=== PATIENT | female | born 2000 | race Caucasian/White ===

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

== ENCOUNTER 2019-03-22 19:34 | Observation (INO) ==
[2019-03-22 20:08] LABS: Bilirubin,Urine Negative (Negative); Blood,Urine Negative (Negative); Clarity,Urine Clear (Clear); Color,Urine Yellow (Yellow); Glucose,Urine (UA) Normal (Normal); Ketones,Urine Negative (Negative); Leukocyte Esterase,Urine Small (Negative); Nitrite,Urine Negative (Negative); Protein,Urine Negative (Neg-Trace); Specific Gravity,Urine 1.009 (1.010-1.025); Urobilinogen,Urine Normal (Normal)
[2019-03-22 20:10] LABS: Bacteria,Urine Moderate per hpf (None-Few); Hyaline Casts,Urine None Seen per lpf (None-Few); RBC,Urine 0-3 per hpf (0-3); Squamous Epithelial Cell,Urine Many per lpf (None-Few)
[2019-03-22 20:19] LABS: Basophils # 0.1 K/mcL (0.0-0.2); Basophils % 0.6 %; Eosinophils % 0.1 %; Hemoglobin 13.7 g/dL (11.5-15.4); Immature Granulocytes % 0.1 % (0-4); Lymphocytes # 1.6 K/mcL (0.6-4.6); Lymphocytes % 19.7 %; Mean Corpuscular HGB Conc 34.3 g/dL (31.6-35.5); Mean Corpuscular Hemoglobin 31.9 pg (28.0-33.3); Mean Platelet Volume 10.1 fL (9.4-12.4); Monocytes # 0.5 K/mcL (0.0-1.3); Monocytes % 6.4 %; Platelet Count 236 K/mcL (140-400); Red Cell Distribution Width 11.6 % (11.5-14.5); Segmented Neutrophils % 73.1 %; White Blood Count 8.2 K/mcL (4.3-11.1)
[2019-03-22 20:41] LABS: Alanine Aminotransferase 19 Units/L (7-52); Albumin 4.7 g/dL (3.5-5.7); Albumin/Globulin Ratio 1.7 (1.1-2.2); Alkaline Phosphatase 45 Units/L (34-104); Amylase 41 Units/L (29-103); Aspartate Amino Transferase 19 Units/L (13-39); BUN/Creatinine Ratio 13 (6-26); Bilirubin,Direct 0.2 mg/dL (0.0-0.2); Bilirubin,Indirect 0.6 mg/dL (0.0-1.2); Bilirubin,Total 0.8 mg/dL (0.3-1.0); Blood Urea Nitrogen 9 mg/dL (6-20); Calcium 9.8 mg/dL (8.6-10.3); Carbon Dioxide 24 mEq/L (23-29); Chloride 103 mEq/L (98-107); Globulin 2.8 g/dL (2.4-3.5); Glucose 89 mg/dL (70-105); Lipase 25 Units/L (11-82); Osmolality,Calculated 272 (280-300); Potassium 3.8 mEq/L (3.5-5.1); Sodium 132 mEq/L (136-145); Total Protein 7.5 g/dL (6.4-8.9); eGFR For African Americans > 60; eGFR For Non-African Americans > 60
[2019-03-22] MEDS ORDERED: Isovue-370 500 ML BOTTLE IVP ONE (22:44)
[2019-03-22] MEDS ORDERED: 0.9 % Sodium Chloride 1,000 ML IVC STA (22:45)
--- NOTE | 2019-03-22 22:48 | Emergency Department Note ---
Disposition Clinical Impression: RLQ abdominal pain Disposition: Still a Patient Condition: Good Referrals: Tracie Fritz CNP [Primary Care Provider] - Forms: ED Satisfaction Letter, Work/School Release Time of Disposition: 22:58 General Adult HPI - General Chief complaint: ED Abdominal Pain Stated complaint: RLQ Pain Time Seen by Provider: 03/22/19 20:43 Source: patient Limitations: no limitations Nursing Notes Reviewed: Yes Vital Signs Reviewed: Yes - History of Present Illness HPI Narrative: 18-year-old female who presents the emergency department with complaints of right lower quadrant abdominal pain. She states this started earlier today. Alejo keys has not felt hungry all day which she did tolerate a sandwich earlier this morning. She notes nausea but denies any vomiting. She denies any urinary symptoms including dysuria, hematuria. She denies any vaginal bleeding or discharge. Last measured. He was possibly one month ago. She denies any history of abdominal surgeries or ovarian cysts. She has never had pain similar to this. She took Tylenol and Zofran and the symptoms with her symptoms. She denies any chest pain, shortness of breath, fever, chills. Pain Scale: 5 - Related Data Previous Rx's Medication Instructions Recorded Albuterol Sulfate [Albuterol 1 puff IH Q4HR #1 hfa.aer.ad 12/17/17 Inhaler] Famotidine [Pepcid] 20 mg PO BID 7 Days #14 tablet 12/17/17 predniSONE [Prednisone] 50 mg PO DAILY #3 tablet 12/18/17 Allergies Allergy/AdvReac Type Severity Reaction Status Date / Time No Known Allergies Allergy Verified 12/16/17 19:32 Review of Systems: ROS per history of present illness, all other systems reviewed and negative or normal. All systems ED: reviewed and negative except as stated. Review of Systems: As Per HPI Past Medical History - Past Medical History Medical history: Reports: no medical history Psychiatric history: Reports: no psych history - Social History Smoking Status: Never smoker Smokeless Tobacco Status: No Alcohol use: Reports: none Drug use: Reports: none Physical Exam General: Conversant. No apparent distress. Follow commands. Appears stated age. Neck: No JVD. Trachea midline. Neck supple. Eyes: PERRL. No scleral icterus. HENT: Normocephalic and atraumatic. Moist mucus membranes. Cardiovascular: Regular rate and rhythm. Normal S1 and S2. No murmurs appreciated. Normal capillary refill. Extremities well perfused with 2+ distal pulses bilaterally. No edema. Pulmonary: Normal and equal breath sounds bilaterally, anteriorly and posteriorly. No wheezes, rales, or rhonchi. Not in respiratory distress. Speaks in full sentences. Abdomen: Soft, nondistended. The patient has tenderness in the right lower quadrant at McBurney's point. There is no rigidity or guarding. Positive rovsing sign. Negative psoas. Neuro: Alert and oriented x3. No slurred speech. No focal deficits noted. Skin: No rashes noted on visualized skin. Musculoskeletal: No bony abnormalities visualized. Moves all extremities. Psych: Normal mood. Pleasant. Makes appropriate eye contact. - General Limitations: no limitations General appearance: alert, in no apparent distress Course Vital Signs Temperature 98.4 F 03/22/19 19:52 Pulse Rate 104 03/22/19 19:52 Respiratory Rate 20 03/22/19 19:52 Blood Pressure 126/88 03/22/19 19:52 O2 Sat by Pulse Oximetry 99 03/22/19 19:52 Temperature 98.4 F 03/22/19 19:52 Pulse Rate 104 03/22/19 19:52 Respiratory Rate 20 03/22/19 19:52 Blood Pressure 126/88 03/22/19 19:52 O2 Sat by Pulse Oximetry 99 03/22/19 19:52 Oxygen Delivery Oxygen Delivery Room Air Medical Decision Making - [facility] Narrative Medical decision making narrative: 18-year-old female who presents the emergency department with complaints of right lower quadrant abdominal pain. Patient has stable vital signs upon arrival. Laboratory evaluation obtained in triage including CBC, BMP, urinalysis, urine test shows evidence of possible urinary tract infection. Patient's pain is predominantly in the right lower quadrant over McBurney's point with positive Rovsing but no rigidity or rebound tenderness. The patient is otherwise well appearing, vomiting, not tachycardic. The patient has no significant leukocytosis or anemia. Electrolytes are stable with the exception of slight hyponatremia. LFTs normal. Lipase not significantly elevated. She is not . We will obtain CT abdomen/pelvis to evaluate for possible appendicitis and mother is agreeable to this plan. Should this show significant ovarian cyst may require ovarian ultrasound but her symptoms are not consistent with ovarian torsion. Please see final disposition in Dr. Dale's note. Patient is still patient. - Medical Records Medical records reviewed: Yes I reviewed the patient's medical records. - Lab Data Lab results reviewed: Yes I reviewed the patient's lab results. Result diagrams: 03/22/19 20:06 03/22/19 20:06 Lab Results 03/22/19 03/22/19 03/22/19 Range/Units 19:40 19:40 20:06 WBC 8.2 (4.3-11.1) K/mcL RBC 4.30 (3.82-4.97) M/mcL Hgb 13.7 (11.5-15.4) g/dL Hct 40.0 (35.3-44.9) % MCV 93.0 (83.0-100.0) fL MCH 31.9 (28.0-33.3) pg MCHC 34.3 (31.6-35.5) g/dL RDW 11.6 (11.5-14.5) % Plt Count 236 (140-400) K/mcL MPV 10.1 (9.4-12.4) fL Immature Gran % 0.1 (0-4) % Seg Neutrophils % 73.1 % Lymphocytes % 19.7 % Monocytes % 6.4 % Eosinophils % 0.1 % Basophils % 0.6 % Neutrophils # 6.0 (1.6-8.9) K/mcL Lymphocytes # 1.6 (0.6-4.6) K/mcL Monocytes # 0.5 (0.0-1.3) K/mcL Eosinophils # 0.0 (0.0-0.6) K/mcL Basophils # 0.1 (0.0-0.2) K/mcL Sodium (136-145) mEq/L Potassium (3.5-5.1) mEq/L Chloride (98-107) mEq/L Carbon Dioxide (23-29) mEq/L BUN (6-20) mg/dL Creatinine (0.60-1.20) mg/dL Est GFR ( Amer) Est GFR (Non-Af Amer) BUN/Creatinine Ratio (6-26) Glucose (70-105) mg/dL Calculated Osmolality (280-300) Calcium (8.6-10.3) mg/dL Total Bilirubin (0.3-1.0) mg/dL Direct Bilirubin (0.0-0.2) mg/dL Indirect Bilirubin (0.0-1.2) mg/dL AST (13-39) Units/L ALT (7-52) Units/L Alkaline Phosphatase (34-104) Units/L Serum Total Protein (6.4-8.9) g/dL Albumin (3.5-5.7) g/dL Globulin (2.4-3.5) g/dL Albumin/Globulin Ratio (1.1-2.2) Amylase (29-103) Units/L Lipase (11-82) Units/L Urine Color Yellow (Yellow) Urine Clarity Clear (Clear) Urine pH 7.0 (5.0-8.0) pH Units Ur Specific [place] 1.009 L (1.010-1.025) Urine Protein Negative (Neg-Trace) mg/dL Urine Glucose (UA) Normal (Normal) mg/dL Urine Ketones Negative (Negative) mg/dL Urine Blood Negative (Negative) Urine Nitrite Negative (Negative) Urine Bilirubin Negative (Negative) Urine Urobilinogen Normal (Normal) mg/dL Ur Leukocyte Esterase Small H (Negative) Urine Microscopic RBC 0-3 (0-3) per hpf Urine Microscopic WBC 5-15 H (0-3) per hpf Ur Squamous Epith Cells Many H (None-Few) per lpf Urine Bacteria Moderate H (None-Few) per hpf Hyaline Casts None Seen (None-Few) per lpf Ur Culture Indicated? YES A (NO) Urine Test Negative (Negative) 03/22/19 Range/Units 20:06 WBC (4.3-11.1) K/mcL RBC (3.82-4.97) M/mcL Hgb (11.5-15.4) g/dL Hct (35.3-44.9) % MCV (83.0-100.0) fL MCH (28.0-33.3) pg MCHC (31.6-35.5) g/dL RDW (11.5-14.5) % Plt Count (140-400) K/mcL MPV (9.4-12.4) fL Immature Gran % (0-4) % Seg Neutrophils % % Lymphocytes % % Monocytes % % Eosinophils % % Basophils % % Neutrophils # (1.6-8.9) K/mcL Lymphocytes # (0.6-4.6) K/mcL Monocytes # (0.0-1.3) K/mcL Eosinophils # (0.0-0.6) K/mcL Basophils # (0.0-0.2) K/mcL Sodium 132 L (136-145) mEq/L Potassium 3.8 (3.5-5.1) mEq/L Chloride 103 (98-107) mEq/L Carbon Dioxide 24 (23-29) mEq/L BUN 9 (6-20) mg/dL Creatinine 0.67 (0.60-1.20) mg/dL Est GFR ( Amer) > 60 Est GFR (Non-Af Amer) > 60 BUN/Creatinine Ratio 13 (6-26) Glucose 89 (70-105) mg/dL Calculated Osmolality 272 L (280-300) Calcium 9.8 (8.6-10.3) mg/dL Total Bilirubin 0.8 (0.3-1.0) mg/dL Direct Bilirubin 0.2 (0.0-0.2) mg/dL Indirect Bilirubin 0.6 (0.0-1.2) mg/dL AST 19 (13-39) Units/L ALT 19 (7-52) Units/L Alkaline Phosphatase 45 (34-104) Units/L Serum Total Protein 7.5 (6.4-8.9) g/dL Albumin 4.7 (3.5-5.7) g/dL Globulin 2.8 (2.4-3.5) g/dL Albumin/Globulin Ratio 1.7 (1.1-2.2) Amylase 41 (29-103) Units/L Lipase 25 (11-82) Units/L Urine Color (Yellow) Urine Clarity (Clear) Urine pH (5.0-8.0) pH Units Ur Specific [place] (1.010-1.025) Urine Protein (Neg-Trace) mg/dL Urine Glucose (UA) (Normal) mg/dL Urine Ketones (Negative) mg/dL Urine Blood (Negative) Urine Nitrite (Negative) Urine Bilirubin (Negative) Urine Urobilinogen (Normal) mg/dL Ur Leukocyte Esterase (Negative) Urine Microscopic RBC (0-3) per hpf Urine Microscopic WBC (0-3) per hpf Ur Squamous Epith Cells (None-Few) per lpf Urine Bacteria (None-Few) per hpf Hyaline Casts (None-Few) per lpf Ur Culture Indicated? (NO) Urine Test (Negative) Attestation Statement - Attestation Attestation: I, Nguyễn Dale DO, examined this patient [id number] and my medical decision-making was reviewed with Dr. Marissa Ramirez, Resident Physician. I agree with the documented findings, disposition and treatment plan as described except to the extent set forth below. I personally supervised and was present for the bunn/critical portions of the procedures completed by the resident documented below. Please see my progress notes for details.
--- NOTE | 2019-03-22 23:18 | Emergency Department Note ---
Disposition Clinical Impression: RLQ abdominal pain Disposition: Still a Patient Condition: Good Referrals: Tracie Fritz FURRIER DESIGNER [Primary Care Provider] - Forms: ED Satisfaction Letter, Work/School Release Time of Disposition: 01:07 General Adult HPI - General Chief complaint: ED Abdominal Pain Stated complaint: RLQ Pain Time Seen by Provider: 03/22/19 20:43 Source: patient Limitations: no limitations - History of Present Illness Pain Scale: 5 - Related Data Previous Rx's Medication Instructions Recorded Albuterol Sulfate [Albuterol 1 puff IH Q4HR #1 hfa.aer.ad 12/17/17 Inhaler] Famotidine [Pepcid] 20 mg PO BID 7 Days #14 tablet 12/17/17 predniSONE [Prednisone] 50 mg PO DAILY #3 tablet 12/18/17 Allergies Allergy/AdvReac Type Severity Reaction Status Date / Time No Known Allergies Allergy Verified 12/16/17 19:32 Past Medical History - Past Medical History Medical history: Reports: no medical history Psychiatric history: Reports: no psych history - Social History Smoking Status: Never smoker Smokeless Tobacco Status: No Alcohol use: Reports: none Drug use: Reports: none Physical Exam - General Limitations: no limitations General appearance: alert, in no apparent distress Course Vital Signs Temperature 98.4 F 03/22/19 19:52 Pulse Rate 104 03/22/19 19:52 Respiratory Rate 20 03/22/19 19:52 Blood Pressure 126/88 03/22/19 19:52 O2 Sat by Pulse Oximetry 99 03/22/19 19:52 Temperature 98.4 F 03/22/19 19:52 Pulse Rate 104 03/22/19 19:52 Respiratory Rate 20 03/22/19 19:52 Blood Pressure 126/88 03/22/19 19:52 O2 Sat by Pulse Oximetry 99 03/22/19 19:52 Oxygen Delivery Oxygen Delivery Room Air Medical Decision Making - Lab Data Result diagrams: 03/22/19 20:06 03/22/19 20:06 Lab Results 03/22/19 03/22/19 03/22/19 Range/Units 19:40 19:40 20:06 WBC 8.2 (4.3-11.1) K/mcL RBC 4.30 (3.82-4.97) M/mcL Hgb 13.7 (11.5-15.4) g/dL Hct 40.0 (35.3-44.9) % MCV 93.0 (83.0-100.0) fL MCH 31.9 (28.0-33.3) pg MCHC 34.3 (31.6-35.5) g/dL RDW 11.6 (11.5-14.5) % Plt Count 236 (140-400) K/mcL MPV 10.1 (9.4-12.4) fL Immature Gran % 0.1 (0-4) % Seg Neutrophils % 73.1 % Lymphocytes % 19.7 % Monocytes % 6.4 % Eosinophils % 0.1 % Basophils % 0.6 % Neutrophils # 6.0 (1.6-8.9) K/mcL Lymphocytes # 1.6 (0.6-4.6) K/mcL Monocytes # 0.5 (0.0-1.3) K/mcL Eosinophils # 0.0 (0.0-0.6) K/mcL Basophils # 0.1 (0.0-0.2) K/mcL Sodium (136-145) mEq/L Potassium (3.5-5.1) mEq/L Chloride (98-107) mEq/L Carbon Dioxide (23-29) mEq/L BUN (6-20) mg/dL Creatinine (0.60-1.20) mg/dL Est GFR ( Amer) Est GFR (Non-Af Amer) BUN/Creatinine Ratio (6-26) Glucose (70-105) mg/dL Calculated Osmolality (280-300) Calcium (8.6-10.3) mg/dL Total Bilirubin (0.3-1.0) mg/dL Direct Bilirubin (0.0-0.2) mg/dL Indirect Bilirubin (0.0-1.2) mg/dL AST (13-39) Units/L ALT (7-52) Units/L Alkaline Phosphatase (34-104) Units/L Serum Total Protein (6.4-8.9) g/dL Albumin (3.5-5.7) g/dL Globulin (2.4-3.5) g/dL Albumin/Globulin Ratio (1.1-2.2) Amylase (29-103) Units/L Lipase (11-82) Units/L Urine Color Yellow (Yellow) Urine Clarity Clear (Clear) Urine pH 7.0 (5.0-8.0) pH Units Ur Specific [place] 1.009 L (1.010-1.025) Urine Protein Negative (Neg-Trace) mg/dL Urine Glucose (UA) Normal (Normal) mg/dL Urine Ketones Negative (Negative) mg/dL Urine Blood Negative (Negative) Urine Nitrite Negative (Negative) Urine Bilirubin Negative (Negative) Urine Urobilinogen Normal (Normal) mg/dL Ur Leukocyte Esterase Small H (Negative) Urine Microscopic RBC 0-3 (0-3) per hpf Urine Microscopic WBC 5-15 H (0-3) per hpf Ur Squamous Epith Cells Many H (None-Few) per lpf Urine Bacteria Moderate H (None-Few) per hpf Hyaline Casts None Seen (None-Few) per lpf Ur Culture Indicated? YES A (NO) Urine Test Negative (Negative) 03/22/19 Range/Units 20:06 WBC (4.3-11.1) K/mcL RBC (3.82-4.97) M/mcL Hgb (11.5-15.4) g/dL Hct (35.3-44.9) % MCV (83.0-100.0) fL MCH (28.0-33.3) pg MCHC (31.6-35.5) g/dL RDW (11.5-14.5) % Plt Count (140-400) K/mcL MPV (9.4-12.4) fL Immature Gran % (0-4) % Seg Neutrophils % % Lymphocytes % % Monocytes % % Eosinophils % % Basophils % % Neutrophils # (1.6-8.9) K/mcL Lymphocytes # (0.6-4.6) K/mcL Monocytes # (0.0-1.3) K/mcL Eosinophils # (0.0-0.6) K/mcL Basophils # (0.0-0.2) K/mcL Sodium 132 L (136-145) mEq/L Potassium 3.8 (3.5-5.1) mEq/L Chloride 103 (98-107) mEq/L Carbon Dioxide 24 (23-29) mEq/L BUN 9 (6-20) mg/dL Creatinine 0.67 (0.60-1.20) mg/dL Est GFR ( Amer) > 60 Est GFR (Non-Af Amer) > 60 BUN/Creatinine Ratio 13 (6-26) Glucose 89 (70-105) mg/dL Calculated Osmolality 272 L (280-300) Calcium 9.8 (8.6-10.3) mg/dL Total Bilirubin 0.8 (0.3-1.0) mg/dL Direct Bilirubin 0.2 (0.0-0.2) mg/dL Indirect Bilirubin 0.6 (0.0-1.2) mg/dL AST 19 (13-39) Units/L ALT 19 (7-52) Units/L Alkaline Phosphatase 45 (34-104) Units/L Serum Total Protein 7.5 (6.4-8.9) g/dL Albumin 4.7 (3.5-5.7) g/dL Globulin 2.8 (2.4-3.5) g/dL Albumin/Globulin Ratio 1.7 (1.1-2.2) Amylase 41 (29-103) Units/L Lipase 25 (11-82) Units/L Urine Color (Yellow) Urine Clarity (Clear) Urine pH (5.0-8.0) pH Units Ur Specific [place] (1.010-1.025) Urine Protein (Neg-Trace) mg/dL Urine Glucose (UA) (Normal) mg/dL Urine Ketones (Negative) mg/dL Urine Blood (Negative) Urine Nitrite (Negative) Urine Bilirubin (Negative) Urine Urobilinogen (Normal) mg/dL Ur Leukocyte Esterase (Negative) Urine Microscopic RBC (0-3) per hpf Urine Microscopic WBC (0-3) per hpf Ur Squamous Epith Cells (None-Few) per lpf Urine Bacteria (None-Few) per hpf Hyaline Casts (None-Few) per lpf Ur Culture Indicated? (NO) Urine Test (Negative) Attestation Statement - Attestation Attestation: I, Nguyễn Dale DO, examined this patient [id number] and my medical decision-making was reviewed with Dr. Marissa Ramirez, Resident Physician. I agree with the documented findings, disposition and treatment plan as described except to the extent set forth below. I personally supervised and was present for the bunn/critical portions of the procedures completed by the resident documented below. Please see my progress notes for details. 18-year-old female presents emergency room with progressively worsening right lower quadrant abdominal pain over the last 12 hours. Patient has had intermitt ent fevers and chills at home but never documented. She denies any headache or vision change. She has not had any other symptoms or complaints prior to this. Patient is not sexually active. She denies any vaginal discharge or bleeding. Currently denying chest pain shortness of breath. She is otherwise stable. She is up-to-date on her shots and has not traveled outside the country. 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 Vital signs are reviewed and are stable. Patient is resting comfortably in the bed. Head is atraumatic. Mucous membranes are moist. Oropharynx is patent. Trachea is midline. Abdomen is soft but he does have isolated right lower quadrant abdominal pain with no guarding rigidity or peritoneal symptoms at this time. No one in the patient's family has ovarian cyst. She is supposed to start her menstrual cycle here in the next day or so. She has never had pain like this ever in the past. Patient is in the right lower quadrant does not appear to be in the adnexa. Urinalysis and urine test were collected prior to my evaluation her test is negative. Ectopic appears to be officially ruled out at this time. Patient is concerning for appendicitis based on the physical exam. No immediate need for ultrasound of the abdomen considering there is no specific history of ovarian cyst. On the imaging modality of the abdomen will determine whether or not further ultrasound or pelvic examination is completed. Patient is adamant that she is not sexually active at this time. Symptomatic control fluids and pain medication will be given as needed. Disposition pending. See detailed documentation the physical exam, medical intervention, medical decision-making and disposition in the resident physician's note. No critical care provider the patient's treatment course at this time. [id number] Patient is clinically stable. CT imaging the abdomen does not show any acute signs of appendicitis. There is physiologic free fluid and possible ovarian cyst. Ultrasound is pending at this time. The patient does disclose now this point that she has been sexually active in the past but does not have any concern for sexual transmitted diseases vaginal discharge or other issues. Effectively, ectopic and tubo-ovarian abscess have been ruled out at this point. Ovarian cyst and patient will be evaluated transabdominal versus trans-vaginal ultrasound. Discussion was had with the patient about pelvic examination as well as swabs that she does not want that completed at this point. Patient will be monitored until the imaging modality is completed and disposition determined. [id number] Patient is still pending the completion of the ultrasound. Patient was signed out to the overnight physician Dr. Jeong for the completion of care. Patient is still denying any concern for infectious disease related issues and does not want pelvic exam. Stable at the time of signout.
--- NOTE | 2019-03-23 01:05 | Emergency Department Note ---
Disposition Clinical Impression: RLQ abdominal pain Disposition: Admitted As Inpatient Condition: Good Referrals: Tracie Fritz MECHANICAL LABORATORY TECHNICIAN [Primary Care Provider] - Forms: ED Satisfaction Letter, Work/School Release Time of Disposition: 01:37 General Adult HPI - General Chief complaint: ED Abdominal Pain Stated complaint: RLQ Pain Time Seen by Provider: 03/22/19 20:43 Source: patient Limitations: no limitations - History of Present Illness Pain Scale: 5 - Related Data Previous Rx's Medication Instructions Recorded Albuterol Sulfate [Albuterol 1 puff IH Q4HR #1 [id number].[email or web address].[email or web address] 12/17/17 Inhaler] Famotidine [Pepcid] 20 mg PO BID 7 Days #14 tablet 12/17/17 predniSONE [Prednisone] 50 mg PO DAILY #3 tablet 12/18/17 Allergies Allergy/AdvReac Type Severity Reaction Status Date / Time No Known Allergies Allergy Verified 12/16/17 19:32 Past Medical History - Past Medical History Medical history: Reports: no medical history Psychiatric history: Reports: no psych history - Social History Smoking Status: Never smoker Smokeless Tobacco Status: No Alcohol use: Reports: none Drug use: Reports: none Physical Exam - General Limitations: no limitations General appearance: alert, in no apparent distress Course Vital Signs Temperature 98.4 F 03/22/19 19:52 Pulse Rate 104 03/22/19 19:52 Respiratory Rate 20 03/22/19 19:52 Blood Pressure 126/88 03/22/19 19:52 O2 Sat by Pulse Oximetry 99 03/22/19 19:52 Temperature 98.4 F 03/22/19 19:52 Pulse Rate 104 03/22/19 19:52 Respiratory Rate 20 03/22/19 19:52 Blood Pressure 126/88 03/22/19 19:52 O2 Sat by Pulse Oximetry 99 03/22/19 19:52 Oxygen Delivery Oxygen Delivery Room Air Medical Decision Making - Lab Data Result diagrams: 03/22/19 20:06 03/22/19 20:06 Lab Results 03/22/19 03/22/19 03/22/19 Range/Units 19:40 19:40 20:06 WBC 8.2 (4.3-11.1) K/mcL RBC 4.30 (3.82-4.97) M/mcL Hgb 13.7 (11.5-15.4) g/dL Hct 40.0 (35.3-44.9) % MCV 93.0 (83.0-100.0) fL MCH 31.9 (28.0-33.3) pg MCHC 34.3 (31.6-35.5) g/dL RDW 11.6 (11.5-14.5) % Plt Count 236 (140-400) K/mcL MPV 10.1 (9.4-12.4) fL Immature Gran % 0.1 (0-4) % Seg Neutrophils % 73.1 % Lymphocytes % 19.7 % Monocytes % 6.4 % Eosinophils % 0.1 % Basophils % 0.6 % Neutrophils # 6.0 (1.6-8.9) K/mcL Lymphocytes # 1.6 (0.6-4.6) K/mcL Monocytes # 0.5 (0.0-1.3) K/mcL Eosinophils # 0.0 (0.0-0.6) K/mcL Basophils # 0.1 (0.0-0.2) K/mcL Sodium (136-145) mEq/L Potassium (3.5-5.1) mEq/L Chloride (98-107) mEq/L Carbon Dioxide (23-29) mEq/L BUN (6-20) mg/dL Creatinine (0.60-1.20) mg/dL Est GFR ( Amer) Est GFR (Non-Af Amer) BUN/Creatinine Ratio (6-26) Glucose (70-105) mg/dL Calculated Osmolality (280-300) Calcium (8.6-10.3) mg/dL Total Bilirubin (0.3-1.0) mg/dL Direct Bilirubin (0.0-0.2) mg/dL Indirect Bilirubin (0.0-1.2) mg/dL AST (13-39) Units/L ALT (7-52) Units/L Alkaline Phosphatase (34-104) Units/L Serum Total Protein (6.4-8.9) g/dL Albumin (3.5-5.7) g/dL Globulin (2.4-3.5) g/dL Albumin/Globulin Ratio (1.1-2.2) Amylase (29-103) Units/L Lipase (11-82) Units/L Urine Color Yellow (Yellow) Urine Clarity Clear (Clear) Urine pH 7.0 (5.0-8.0) pH Units Ur Specific [place] 1.009 L (1.010-1.025) Urine Protein Negative (Neg-Trace) mg/dL Urine Glucose (UA) Normal (Normal) mg/dL Urine Ketones Negative (Negative) mg/dL Urine Blood Negative (Negative) Urine Nitrite Negative (Negative) Urine Bilirubin Negative (Negative) Urine Urobilinogen Normal (Normal) mg/dL Ur Leukocyte Esterase Small H (Negative) Urine Microscopic RBC 0-3 (0-3) per hpf Urine Microscopic WBC 5-15 H (0-3) per hpf Ur Squamous Epith Cells Many H (None-Few) per lpf Urine Bacteria Moderate H (None-Few) per hpf Hyaline Casts None Seen (None-Few) per lpf Ur Culture Indicated? YES A (NO) Urine Test Negative (Negative) 03/22/19 Range/Units 20:06 WBC (4.3-11.1) K/mcL RBC (3.82-4.97) M/mcL Hgb (11.5-15.4) g/dL Hct (35.3-44.9) % MCV (83.0-100.0) fL MCH (28.0-33.3) pg MCHC (31.6-35.5) g/dL RDW (11.5-14.5) % Plt Count (140-400) K/mcL MPV (9.4-12.4) fL Immature Gran % (0-4) % Seg Neutrophils % % Lymphocytes % % Monocytes % % Eosinophils % % Basophils % % Neutrophils # (1.6-8.9) K/mcL Lymphocytes # (0.6-4.6) K/mcL Monocytes # (0.0-1.3) K/mcL Eosinophils # (0.0-0.6) K/mcL Basophils # (0.0-0.2) K/mcL Sodium 132 L (136-145) mEq/L Potassium 3.8 (3.5-5.1) mEq/L Chloride 103 (98-107) mEq/L Carbon Dioxide 24 (23-29) mEq/L BUN 9 (6-20) mg/dL Creatinine 0.67 (0.60-1.20) mg/dL Est GFR ( Amer) > 60 Est GFR (Non-Af Amer) > 60 BUN/Creatinine Ratio 13 (6-26) Glucose 89 (70-105) mg/dL Calculated Osmolality 272 L (280-300) Calcium 9.8 (8.6-10.3) mg/dL Total Bilirubin 0.8 (0.3-1.0) mg/dL Direct Bilirubin 0.2 (0.0-0.2) mg/dL Indirect Bilirubin 0.6 (0.0-1.2) mg/dL AST 19 (13-39) Units/L ALT 19 (7-52) Units/L Alkaline Phosphatase 45 (34-104) Units/L Serum Total Protein 7.5 (6.4-8.9) g/dL Albumin 4.7 (3.5-5.7) g/dL Globulin 2.8 (2.4-3.5) g/dL Albumin/Globulin Ratio 1.7 (1.1-2.2) Amylase 41 (29-103) Units/L Lipase 25 (11-82) Units/L Urine Color (Yellow) Urine Clarity (Clear) Urine pH (5.0-8.0) pH Units Ur Specific [place] (1.010-1.025) Urine Protein (Neg-Trace) mg/dL Urine Glucose (UA) (Normal) mg/dL Urine Ketones (Negative) mg/dL Urine Blood (Negative) Urine Nitrite (Negative) Urine Bilirubin (Negative) Urine Urobilinogen (Normal) mg/dL Ur Leukocyte Esterase (Negative) Urine Microscopic RBC (0-3) per hpf Urine Microscopic WBC (0-3) per hpf Ur Squamous Epith Cells (None-Few) per lpf Urine Bacteria (None-Few) per hpf Hyaline Casts (None-Few) per lpf Ur Culture Indicated? (NO) Urine Test (Negative) Attestation Statement - Attestation Attestation: Care assumed from Dr. Dale 01:00 pending pelvic ultrasound. Patient presented with lower abdominal pain. Transcribed report of the CT scan reviewed by me. Labs reviewed by me. Ultrasound pending 01:32: I examined the patient. She has tenderness with palpation of her right lower quadrant. I discussed the findings of his CT scan and ultrasound with the patient and her mother. Given her ongoing pain call was placed to the acute care surgicalist 01:36: Dr. Maki accepts admission
[2019-03-23] MEDS ORDERED: cefOXitin 1,000 MG in 0.9 % Sodium Chloride Mini Bag 100 ML IVPB ONE (01:36)
[2019-03-23] MEDS: 0.9 % Sodium Chloride 1,000 ML IVC SCH ×3 (02:36→20:20)
[2019-03-23] MEDS: Ketorolac 15 MG/ML VIAL IVP PRN ×3 (04:03→20:23)
[2019-03-23 04:59] LABS: Basophils % 0.4 %; Eosinophils % 0.4 %; Hematocrit 35.3 % (35.3-44.9); Immature Granulocytes % 0.2 % (0-4); Lymphocytes # 1.7 K/mcL (0.6-4.6); Lymphocytes % 36.9 %; Mean Corpuscular HGB Conc 33.7 g/dL (31.6-35.5); Mean Corpuscular Hemoglobin 31.5 pg (28.0-33.3); Mean Corpuscular Volume 93.4 fL (83.0-100.0); Mean Platelet Volume 10.9 fL (9.4-12.4); Monocytes # 0.5 K/mcL (0.0-1.3); Monocytes % 10.3 %; Neutrophils # 2.3 K/mcL (1.6-8.9); Platelet Count 194 K/mcL (140-400); Red Blood Count 3.78 M/mcL (3.82-4.97); Red Cell Distribution Width 11.5 % (11.5-14.5); Segmented Neutrophils % 51.8 %; White Blood Count 4.5 K/mcL (4.3-11.1)
[2019-03-23 05:00] LABS: Hemoglobin 11.9 g/dL (11.5-15.4)
[2019-03-23] MEDS ORDERED: Pantoprazole 40 MG VIAL IVP SCH (09:00)
[2019-03-23] MEDS: cefOXitin 2,000 MG in Water for inj. (sterile) 20 ML IVP SCH ×2 (09:17→17:24)
--- NOTE | 2019-03-23 10:57 | Acute Care Surgery H&P ---
<Tabitha Montano - Last Filed: 03/23/19 10:53> Date of Encounter: 03/23/19 Time of Encounter: 07:30 Assessment and Plan (1) RLQ abdominal pain Current Visit: Yes Status: Acute The assessment and plan as outlined above was discussed with the patient and/or family members who expressed understanding and agreement. All questions were answered. Acute appendicitis vs Ovarian Cyst. Pt offered surgical intervention this am, but opted to wait for re-evaluation per surgeon at noon. Continue IVF, IV aTBX, and NPO in the interim. She is recommended to not use pain medications this am so as not to mask any further symptoms. Upon Re-assessment per the ARPN at 1055, pt reports if she is lying still her pain is improved, but ay movement or palpation increased RLQ pain. Previously her discomfort was noted to be much more inferior and lateral; however at this time, she points to McBurney's and has a positive McBurney's sign. Will review with attending surgeon. Anticipate surgical intervention this afternoon History of Present Illness Chief complaint: RLQ pain HPI: Ms. Cassidy is a 18 year old female who presented on 03/22/2019 with complaints of right lower quadrant pain that started earlier that a.m. She reports that she had nausea but no vomiting immediately preceding the right lower quadrant pain. She denies an appetite. She denies fever or chills. She denies any urinary signs or symptoms, vaginal discharge or bleeding, last menstrual period was approximately one month ago. Her clinical course thus far has included laboratory studies which revealed in unremarkable white blood cell count, her UA was positive for a small amount of leukocytes, moderate bacteria, culture as indicated in pending. CT of her abdomen and pelvis with IV and no oral contrast noted no abdominal pelvic process. The appendix was overall normal with some questionable thickening at the terminal ileum. Pelvic ultrasound was performed which noted endometrial thickening most likely consistent with menstrual cycle, no evidence of torsion there was free pelvic fluid in the cul-de-sac. Surgery will admit for further work-up and management. Past Med Surg Social Fam HX - Past Medical History Source: patient Medical history: no medical history Psychiatric history: no psych history - Past Surgical History Surgical History: no surgical history - Social History Smoking Status: Never smoker Smokeless Tobacco Status: No Alcohol use: none Drug use: none - Family History Grandmother Living Status: Still Living Hx Family Respiratory Disorders: Yes (COPD) Medications and Allergies No Known Home Drugs 03/23/19 [History] Allergy/AdvReac Type Severity Reaction Status Date / Time No Known Allergies Allergy Verified 12/16/17 19:32 Review of Systems All systems PM: reviewed and no additional remarkable complaints except as stated All systems PM: The remainder of the systems were reviewed and are negative General Surgery Exam Initial Vital Signs Temp Pulse Resp BP Pulse Ox 98.4 F 104 20 126/88 99 03/22/19 19:52 03/22/19 19:52 03/22/19 19:52 03/22/19 19:52 03/22/19 19:52 - General physical appearance well nourished, no distress, other (sleeping upon entry to room at 0730 and 1055) - Neck trachea midline - Respiratory normal expansion, normal respiratory effort - Abdomen Abdomen general surgery: Present: bowel sounds present, soft, tender (RLQ, more suprapubic and inguinal than McBurney's, neg Rovsign) - Integumentary Integumentary general surgery: Present: warm and dry - Neurologic Present: normal sensation - Musculoskeletal Present: normal gait - Psychiatric Psychiatric general surgery: Present: A&Ox3 Results - Labs 03/23/19 03:53 03/22/19 20:06 Abnormal lab results RBC 3.78 M/mcL (3.82-4.97) L 03/23/19 03:53 Sodium 132 mEq/L (136-145) L 03/22/19 20:06 Calculated Osmolality 272 (280-300) L 03/22/19 20:06 Ur Specific [place] 1.009 (1.010-1.025) L 03/22/19 19:40 Ur Leukocyte Esterase Small (Negative) H 03/22/19 19:40 Urine Microscopic WBC 5-15 per hpf (0-3) H 03/22/19 19:40 Ur Squamous Epith Cells Many per lpf (None-Few) H 03/22/19 19:40 Urine Bacteria Moderate per hpf (None-Few) H 03/22/19 19:40 Ur Culture Indicated? YES (NO) A 03/22/19 19:40 Diabetes panel 03/22/19 Range/Units 20:06 Sodium 132 L (136-145) mEq/L Potassium 3.8 (3.5-5.1) mEq/L Chloride 103 (98-107) mEq/L Carbon Dioxide 24 (23-29) mEq/L BUN 9 (6-20) mg/dL Creatinine 0.67 (0.60-1.20) mg/dL Glucose 89 (70-105) mg/dL Calcium 9.8 (8.6-10.3) mg/dL AST 19 (13-39) Units/L ALT 19 (7-52) Units/L Alkaline Phosphatase 45 (34-104) Units/L Albumin 4.7 (3.5-5.7) g/dL Calcium panel 03/22/19 Range/Units 20:06 Calcium 9.8 (8.6-10.3) mg/dL Albumin 4.7 (3.5-5.7) g/dL Pituitary panel 03/22/19 Range/Units 20:06 Sodium 132 L (136-145) mEq/L Potassium 3.8 (3.5-5.1) mEq/L Chloride 103 (98-107) mEq/L Carbon Dioxide 24 (23-29) mEq/L BUN 9 (6-20) mg/dL Creatinine 0.67 (0.60-1.20) mg/dL Glucose 89 (70-105) mg/dL Calcium 9.8 (8.6-10.3) mg/dL Adrenal panel 03/22/19 Range/Units 20:06 Sodium 132 L (136-145) mEq/L Potassium 3.8 (3.5-5.1) mEq/L Chloride 103 (98-107) mEq/L Carbon Dioxide 24 (23-29) mEq/L BUN 9 (6-20) mg/dL Creatinine 0.67 (0.60-1.20) mg/dL Glucose 89 (70-105) mg/dL Calcium 9.8 (8.6-10.3) mg/dL Total Bilirubin 0.8 (0.3-1.0) mg/dL AST 19 (13-39) Units/L ALT 19 (7-52) Units/L Alkaline Phosphatase 45 (34-104) Units/L Albumin 4.7 (3.5-5.7) g/dL All other labs normal. - Imaging CT scan - abdomen: report reviewed, image reviewed CT scan - pelvis: report reviewed US - abdomen: image reviewed US - pelvic: report reviewed <Glynn,Yeyo T - Last Filed: 03/23/19 12:31> Date of Encounter: 03/23/19 History of Present Illness HPI: Ms. Cassidy is a 18 year old female Review of Systems All systems PM: The remainder of the systems were reviewed and are negative General Surgery Exam Initial Vital Signs Temp Pulse Resp BP Pulse Ox 98.4 F 104 20 126/88 99 03/22/19 19:52 03/22/19 19:52 03/22/19 19:52 03/22/19 19:52 03/22/19 19:52 Results - Labs 03/23/19 03:53 03/22/19 20:06 Abnormal lab results RBC 3.78 M/mcL (3.82-4.97) L 03/23/19 03:53 Sodium 132 mEq/L (136-145) L 03/22/19 20:06 Calculated Osmolality 272 (280-300) L 03/22/19 20:06 Ur Specific [place] 1.009 (1.010-1.025) L 03/22/19 19:40 Ur Leukocyte Esterase Small (Negative) H 03/22/19 19:40 Urine Microscopic WBC 5-15 per hpf (0-3) H 03/22/19 19:40 Ur Squamous Epith Cells Many per lpf (None-Few) H 03/22/19 19:40 Urine Bacteria Moderate per hpf (None-Few) H 03/22/19 19:40 Ur Culture Indicated? YES (NO) A 03/22/19 19:40 Diabetes panel 03/22/19 Range/Units 20:06 Sodium 132 L (136-145) mEq/L Potassium 3.8 (3.5-5.1) mEq/L Chloride 103 (98-107) mEq/L Carbon Dioxide 24 (23-29) mEq/L BUN 9 (6-20) mg/dL Creatinine 0.67 (0.60-1.20) mg/dL Glucose 89 (70-105) mg/dL Calcium 9.8 (8.6-10.3) mg/dL AST 19 (13-39) Units/L ALT 19 (7-52) Units/L Alkaline Phosphatase 45 (34-104) Units/L Albumin 4.7 (3.5-5.7) g/dL Calcium panel 03/22/19 Range/Units 20:06 Calcium 9.8 (8.6-10.3) mg/dL Albumin 4.7 (3.5-5.7) g/dL Pituitary panel 03/22/19 Range/Units 20:06 Sodium 132 L (136-145) mEq/L Potassium 3.8 (3.5-5.1) mEq/L Chloride 103 (98-107) mEq/L Carbon Dioxide 24 (23-29) mEq/L BUN 9 (6-20) mg/dL Creatinine 0.67 (0.60-1.20) mg/dL Glucose 89 (70-105) mg/dL Calcium 9.8 (8.6-10.3) mg/dL Adrenal panel 03/22/19 Range/Units 20:06 Sodium 132 L (136-145) mEq/L Potassium 3.8 (3.5-5.1) mEq/L Chloride 103 (98-107) mEq/L Carbon Dioxide 24 (23-29) mEq/L BUN 9 (6-20) mg/dL Creatinine 0.67 (0.60-1.20) mg/dL Glucose 89 (70-105) mg/dL Calcium 9.8 (8.6-10.3) mg/dL Total Bilirubin 0.8 (0.3-1.0) mg/dL AST 19 (13-39) Units/L ALT 19 (7-52) Units/L Alkaline Phosphatase 45 (34-104) Units/L Albumin 4.7 (3.5-5.7) g/dL All other labs normal. - Attending Attestation I have personally performed a face to face evaluation on this patient. I have reviewed and agree with the care plan. History and Exam by me shows: The patient is seen and evaluated on morning rounds with the acute care surgery team. The patient is quite tender in the right lower quadrant, however, this is below McBurney's point. Her white blood cell count is normal. The CAT scan findings are marginal for appendicitis. I decided to follow her clinically for 6 hours. I went background see her at noon. She continues to have pain and pain with motion and now pain is at McBurney's point. I have recommended laparoscopic appendectomy and we will proceed later today. Yeyo Maki MD FACS
[2019-03-23] MEDS: Ondansetron 4 MG/2 ML VIAL IVP PRN ×2 (14:12→19:56)
--- NOTE | 2019-03-23 17:19 | Anesthesia Evaluation PreOp ---
Date of Encounter: 03/23/19 Time of Encounter: 17:17 - Past History Planned Operation: Lap. Appy Cardiac History: Denies any Significant Hx Pulmonary History: Denies Any Significant HX ADMINISTRATIVE SALES ASSISTANT History: Denies Any Significant HX Other Medical History: Denies Any Significant HX Anesthesia History: No Prior Anesthetic Complications, Past Anesthesia (wisdom teeth) Test: Negative (03/22/19) Alcohol Use: none Drug use: none Medications and Allergies No Known Home Drugs 03/23/19 [History] Allergy/AdvReac Type Severity Reaction Status Date / Time No Known Allergies Allergy Verified 12/16/17 19:32 - Meds/Allergy Pre-op Review Medications Reviewed: Yes Allergies Reviewed: Yes Beta Blockers on Current Med List: No Anesthesia Results - Labs 03/23/19 03:53 03/22/19 20:06 Laboratory Tests 03/22/19 19:40 Urine Test Negative Anesthesia Exam Vital Signs/O2 Sat, Most Current Temp Pulse Resp BP Pulse Ox 98.2 F 62 16 110/67 98 03/23/19 10:47 03/23/19 10:47 03/23/19 10:47 03/23/19 10:47 03/23/19 10:47 NPO (# of Hours): > 8 hrs Pain Scale: 0 Pain Scale Used: Numeric (1 - 10) - HEENT Pupil (Motor): Pupils equal, EOMI Mallampati: III Teeth: Normal Oral Opening: Greater than 3 - ADMINISTRATIVE SALES ASSISTANT LOC: Oriented ADMINISTRATIVE SALES ASSISTANT Motor: Normal RUE, Normal LUE, Normal RLE, Normal LLE, Normal Face ADMINISTRATIVE SALES ASSISTANT Sensory: Normal: RUE, LUE, RLE, LLE, Face - Cardiac Rhythm: Regular Murmur: None JVD: No Carotid Bruit: No - Pulmonary Breath Sounds: bilateral Clear Respiratory Effort: Symmetrical Anesthesia Assess/Plan ASA Score: 1 Level of consciousness: Cooperative Anesthetic Plan: General Autologous Blood: Yes Monitoring Plan: Standard Monitors Recovery Plan: PACU
[2019-03-23] MEDS ORDERED: CefOXitin 1,000 MG VIAL ONE (18:01)
[2019-03-23] MEDS ORDERED: *HR* Propofol 200 MG/20 ML VIAL IVP ONE (18:13)
[2019-03-23] MEDS ORDERED: *HR* FentaNYL (PF) 100 MCG/2 ML VIAL ONE ×2 (18:13→18:38)
[2019-03-23] MEDS ORDERED: *HR* Rocuronium Bromide 50 MG/5 ML VIAL ONE (18:14)
[2019-03-23] MEDS ORDERED: Lidocaine -MPF 2% 2 ML VIAL ONE (18:14)
[2019-03-23] MEDS ORDERED: *HR* Midazolam HCl 2 MG/2 ML VIAL ONE (18:16)
[2019-03-23] MEDS ORDERED: Acetaminophen IV 1,000 MG/100 ML INFUS..BTL ONE (18:17)
[2019-03-23] MEDS ORDERED: Ondansetron 4 MG/2 ML VIAL ONE (18:36)
[2019-03-23] MEDS ORDERED: Dexamethasone 4 MG/ML VIAL ONE (18:36)
[2019-03-23] MEDS ORDERED: Ketorolac 30 MG/ML VIAL ONE (18:38)
--- NOTE | 2019-03-23 18:57 | Operative Note ---
Date of procedure: 03/23/19 Pre-op diagnosis: Acute appendicitis Post-op diagnosis: other (Ruptured left ovarian cyst) Procedure: Laparoscopic appendectomy Anesthesia: ANNETTA Surgeon: Yeyo Maki Was there an commercial lines assistant present: No Estimated blood loss (cc): 10 Specimen: Appendix Condition: stable Disposition: PACU Procedure in Detail: After informed consent the patient is taking major operative suite placed in the supine position and given adequate general endotracheal anesthesia. The abdomen is prepped and draped in sterile fashion utilizing ChloraPrep and standard draping techniques. Timeout was taken and the patient is identified. I made a vertical midline incision below the umbilicus and dissected down the level of fascia. I placed 2 traction stitches with 0 Vicryl. The abdomen was entered visually. I placed a Giles trocar and insufflated to 15 mm pressure CO2. The camera was inserted and the appendix did not appear to be inflamed. The pelvis was full of straw-colored fluid. I placed a 5 mm trocar in the suprapubic area and a 12 mm trocar in the right side of the abdomen. I created an opening between the mesial appendix and base the cecum. I divided the blood supply and the mesoappendix with a vascular load on the laparoscopic stapler. I divided th e appendix from the base of the cecum with a gastrointestinal staple load on the laparoscopic stapler. The appendix was recovered in a specimen bag. I then carefully examined the pelvis. All fluid was irrigated out of the pelvis. I carefully examined both ovaries. The right ovary was normal. The left ovary demonstrated sign of recent rupture ovarian cyst. Photographic documentation was taken. All trochars were removed. Fascia was closed with 0 Vicryl. Skin was closed with 2-0 Vicryl and 4-0 Vicryl. I did inject 30 mL of lidocaine the abdominal wall and skin for local pain management.
[2019-03-23] MEDS ORDERED: *HR* OxyCODONE Immed Rel 5 MG TABLET PO PRN (19:08)
[2019-03-23] MEDS ORDERED: Ondansetron 4 MG/2 ML VIAL IVP PRN ×2 (19:08→19:44)
[2019-03-23] MEDS ORDERED: *HR* HYDROmorphone (PF) 1 MG/ML SYRINGE IVP PRN (19:08)
[2019-03-23] MEDS ORDERED: *HR* Promethazine 25 MG/ML VIAL IVP PRN (19:08)
--- NOTE | 2019-03-23 20:15 | Anesthesia Evaluation Post Op ---
Date of Encounter: 03/23/19 Time of Encounter: 20:14 - Vital Signs Vital Signs: Vital Signs/O2 Sat, Most Current Temp Pulse Resp BP Pulse Ox 97.2 F L 94 16 124/73 100 03/23/19 19:34 03/23/19 19:34 03/23/19 19:34 03/23/19 19:34 03/23/19 19:34 - Lungs Lungs: Clear Ascult./Percussion - Airway Airway: Non-obstructed - Cardiovascular Regular Rate - Mental Status Mental Status: Alert & Oriented, Answers Appropriately - Pain Pain Scale: 0 Pain Scale used: Numeric (1 - 10) - Nausea Vomiting Nausea Vomiting: Not Present - Hydration Hydration: Ice chips, Has not voided - Discharge PostOp Status: Transfer Patient to floor
[2019-03-24] MEDS: cefOXitin 2,000 MG in Water for inj. (sterile) 20 ML IVP SCH ×2 (01:08→09:24)
[2019-03-24] MEDS: 0.9 % Sodium Chloride 1,000 ML IVC SCH (03:15)
[2019-03-24 04:06] VITALS: BP 103/56
[2019-03-24 04:57] LABS: Hematocrit 33.8 % (35.3-44.9); Hemoglobin 11.5 g/dL (11.5-15.4); Immature Granulocytes % 0.2 % (0-4); Lymphocytes # 0.5 K/mcL (0.6-4.6); Lymphocytes % 13.1 %; Mean Corpuscular Hemoglobin 31.4 pg (28.0-33.3); Mean Corpuscular Volume 92.3 fL (83.0-100.0); Mean Platelet Volume 10.2 fL (9.4-12.4); Monocytes # 0.2 K/mcL (0.0-1.3); Monocytes % 5.1 %; Neutrophils # 3.4 K/mcL (1.6-8.9); Platelet Count 218 K/mcL (140-400); Red Blood Count 3.66 M/mcL (3.82-4.97); Red Cell Distribution Width 11.3 % (11.5-14.5); Segmented Neutrophils % 81.6 %; White Blood Count 4.1 K/mcL (4.3-11.1)
[2019-03-24 05:14] LABS: BUN/Creatinine Ratio 12 (6-26); Blood Urea Nitrogen 8 mg/dL (6-20); Calcium 8.8 mg/dL (8.6-10.3); Carbon Dioxide 22 mEq/L (23-29); Chloride 105 mEq/L (98-107); Glucose 216 mg/dL (70-105); Osmolality,Calculated 281 (280-300); Potassium 4.3 mEq/L (3.5-5.1); Sodium 133 mEq/L (136-145); eGFR For African Americans > 60; eGFR For Non-African Americans > 60
[2019-03-24] MEDS: Ketorolac 15 MG/ML VIAL IVP PRN (06:28)
--- NOTE | 2019-03-24 08:44 | Discharge Summary ---
Orders not resulted at time of discharge: Pending orders 03/23/19 18:39 Surgical Pathology [PTH] Routine Date of Encounter: 03/24/19 Time of Encounter: 08:42 - Discharge Diagnosis (1) RLQ abdominal pain Priority: Primary Status: Acute Comments: 18F POD #1 s/p lap appy; pain controlled; tolerating diet; ambulating; voiding; okay for discharge follow up in two weeks in [facility] General Surgery Exam Initial Vital Signs Temp Pulse Resp BP Pulse Ox 98.4 F 104 20 126/88 99 03/22/19 19:52 03/22/19 19:52 03/22/19 19:52 03/22/19 19:52 03/22/19 19:52 - General physical appearance no distress - Respiratory normal expansion, normal respiratory effort - Cardiovascular Cardiovascular exam: Present: RRR - Abdomen Abdomen general surgery: Present: soft, tender (appropriately tender) - Integumentary Integumentary general surgery: Present: warm and dry - Neurologic Present: CN 2-12 grossly intact - Musculoskeletal Present: normal posture - Psychiatric Psychiatric general surgery: Present: A&Ox3 - Hospital Course Hospital course: Ms. Cassidy is a 18 year old female Time spent discussing smoking cessation with patient: 3 to 10 minutes - Time Spent with Patient Total time spent providing and/or coordinating discharge services: Greater than 30 minutes - Discharge Medications Prescriptions: New OxyCODONE Immed Rel [Roxicodone 5 MG] 5 mg PO Q6HR PRN 7 Days #28 tablet PRN Reason: Pain Home Medications: OxyCODONE Immed Rel [Roxicodone 5 MG] 5 mg PO Q6HR PRN 7 Days #28 tablet 03/24/19 [Rx] Allergies/Adverse Reactions: Allergy/AdvReac Type Severity Reaction Status Date / Time No Known Allergies Allergy Verified 12/16/17 19:32 Date of admission: 03/23/19 01:43 Primary care physician: Tracie Fritz CNP Discharging clinician: Zac Castañeda Anticipated date of discharge: 03/24/19 Labs on day of discharge: Labs from last 24 hours 03/24/19 03/24/19 04:25 04:25 WBC 4.1 L RBC 3.66 L Hgb 11.5 Hct 33.8 L MCV 92.3 MCH 31.4 MCHC 34.0 RDW 11.3 L Plt Count 218 MPV 10.2 Immature Gran % 0.2 Seg Neutrophils % 81.6 Lymphocytes % 13.1 Monocytes % 5.1 Eosinophils % 0.0 Basophils % 0.0 Neutrophils # 3.4 Lymphocytes # 0.5 L Monocytes # 0.2 Eosinophils # 0.0 Basophils # 0.0 Sodium 133 L Potassium 4.3 Chloride 105 Carbon Dioxide 22 L BUN 8 Creatinine 0.65 Est GFR ( Amer) > 60 Est GFR (Non-Af Amer) > 60 BUN/Creatinine Ratio 12 Glucose 216 H Calculated Osmolality 281 Calcium 8.8 - Impressions ITS Impressions Abdomen/Pelvis CT 03/22/19 22:44 IMPRESSION: No acute abdominopelvic process; normal appendix aside from very mild hyperemia. Nonspecific free fluid in the abdomen and pelvis in a patient this age is most likely physiologic. Corpus luteum in the left adnexa. No imaging follow-up necessary. D/ / 03/23/2019 07:15:41 Sean Roche / tony Interpreting Provider: Sean Roche Abdomen/Pelvis/Transvag US 03/23/19 00:01 IMPRESSION: Endometrial thickening most likely sequela of phase of menstrual cycle. No evidence of torsion. D/ / 03/23/2019 07:30:05 Sean Roche / bryant Interpreting Provider: Sean Roche - Patient Status Disposition: Home, Self-Care Condition: Good - Discharge Instructions Follow Up With: Tracie Fritz CNP [Primary Care Provider] - Yeyo Maki MD [Partnered Physician] - (2 weeks in [facility]) Additional Instructions: Pain Narcotics are prescribed. 1-2 tabs every 6 hours. Please take with meals. DO NOT drive while taking narcotics. Activity As tolerated. However, I encourage you to limit heaving liftin and strenuous activity until evaluated in clinic. Diet As tolerated. Please start with liquids for the first 6 hours after surgery. Your meal after 6 hours can be a regular diet. Bowel Regimen As long as you are taking narcotics, please take the stool softner daily. Warnings If you experience significant redness around the incision or drainage from the incision that is purulent or malodorous, or you experience fevers, chills, or food intolerance (including nausea, vomiting, abdominal pain or distension), or any symptoms you feel warrant evaluation, please call the office. If unable to reach the office, please go to nearest urgent care center or emergency dep artment - Diet and Activity Activity: ambulate only with your walker Diet: advance to your usual diet
[2019-03-24] MEDS ORDERED: Pantoprazole 40 MG VIAL IVP SCH (09:00)
== END 2019-03-24 11:46 | disposition home or self-care (01) ==
LOC: EMEROOARM 19:34 → 3ANU 19:34
PROVIDERS: ADMIT Surgery; ATTEND Surgery